=== PATIENT | female | born 1960 | race Caucasian/White ===

== ENCOUNTER 2016-07-12 07:06 | Emergency (ER) | payer BC ==
[~2016-07-12] VITALS: Ht 167.6 cm; Wt 113.9 kg
[2016-07-12 07:46] LABS: HEMATOCRIT 43.3 % (36.0-46.0); MCH 31.1 PG (29.0-34.0); MCHC 34.4 G/DL (30.0-36.0); MCV 90.4 FL (83-99); MEAN PLAT.VOLUME 8.9 uM^3 (9.5-12.4); PLATELET COUNT 298 K/uL (156-360); RBC DIS.WIDTH-CV 12.9 % (11.8-14.6); RBC DIS.WIDTH-SD 42.2 % (39-53); RED BLOOD COUNT 4.79 M/uL (3.80-5.20); WHITE BLOOD COUNT 4.3 K/uL (4.1-10.2)
[2016-07-12 08:22] LABS: ANION GAP 10 MEQ/L (2-14); CHLORIDE 104 MEQ/L (99-109); POTASSIUM 4.2 MEQ/L (3.7-5.4); SAMPLE HEMOLYSIS CHECK 0; SAMPLE ICTERIC CHECK 0; SAMPLE LIPEMIA CHECK 0; SODIUM 139 MEQ/L (136-147)
[2016-07-12] MEDS ORDERED: ESCITALOPRAM OX20 MG PO (08:23)
[2016-07-12] MEDS ORDERED: FLUOXETINE HCL40 MG PO (08:24)
[2016-07-12] MEDS ORDERED: ARIPIPRAZOLE5 MG PO (08:24)
[2016-07-12] MEDS ORDERED: SIMVASTATIN20 MG PO (08:24)
[2016-07-12] MEDS ORDERED: LOSARTAN-HCTZ1 EAC2 PO (08:24)
[2016-07-12] MEDS ORDERED: METOPROLOL SUCC50 MG PO (08:24)
[2016-07-12 08:27] LABS: GLUCOSE 99 mg/dL (70-99); UREA NITROGEN (BUN) 12 mg/dL (9-23)
[2016-07-12 08:33] LABS: GFR ESTIMATE (CALCULATED) > 59 mL/min/
[2016-07-12 08:45] LABS: TROP-I INTERPRETATION NEGATIVE; TROPONIN-I 0.02 ng/mL (0.0-0.30)
[2016-07-12 10:02] LABS: TROP-I INTERPRETATION NEGATIVE; TROPONIN-I 0.03 ng/mL (0.0-0.30)
[2016-07-12] MEDS ORDERED: VALTREX1000 MG PO (10:08)
[2016-07-12] MEDS ORDERED: PERCOCET 5/31 TABLET PO (10:08)
[2016-07-12 10:50] VITALS: BP 128/72
== END 2016-07-12 10:52 | disposition home or self-care (01) ==
LOC: EME 07:06
PROVIDERS: Emergency Medicine
DX: R07.89 Other chest pain (principal); B02.9 Zoster without complications; R05 Cough; I10 Essential (primary) hypertension
CPT/HCPCS: 71020; 80048; 84484; 85027; 93005

== ENCOUNTER 2016-07-24 12:27 | Emergency (ER) | payer BC ==
[~2016-07-24] VITALS: Ht 167.6 cm; Wt 115.5 kg
[~2016-07-24 12:27] MED LIST: ARIPIPRAZOLE5 MG PO; ESCITALOPRAM OX20 MG PO; FLUOXETINE HCL40 MG PO; LOSARTAN-HCTZ1 EAC2 PO; METOPROLOL SUCC50 MG PO; PERCOCET 5/31 TABLET PO; SIMVASTATIN20 MG PO; VALTREX1000 MG PO
[2016-07-24 15:21] LABS: HEMATOCRIT 43.6 % (36.0-46.0); MCH 31.6 PG (29.0-34.0); MCHC 33.7 G/DL (30.0-36.0); MCV 93.8 FL (83-99); MEAN PLAT.VOLUME 8.8 uM^3 (9.5-12.4); PLATELET COUNT 344 K/uL (156-360); RBC DIS.WIDTH-CV 13.5 % (11.8-14.6); RBC DIS.WIDTH-SD 43.7 % (39-53); RED BLOOD COUNT 4.65 M/uL (3.80-5.20)
[2016-07-24 15:22] LABS: WHITE BLOOD COUNT 6.5 K/uL (4.1-10.2)
[2016-07-24 15:28] LABS: CHLORIDE 101 mEq/L (99-109); SODIUM 137 mEq/L (136-147)
[2016-07-24 15:29] LABS: GLUCOSE 115 mg/dL (70-99)
[2016-07-24 15:31] LABS: ANION GAP 11 MEQ/L (2-14)
[2016-07-24 15:33] LABS: GFR ESTIMATE (CALCULATED) > 59 mL/min/
[2016-07-24 15:34] LABS: UREA NITROGEN (BUN) 19 mg/dL (9-23)
[2016-07-24 15:36] LABS: TROP-I INTERPRETATION NEGATIVE; TROPONIN-I < 0.01 ng/mL (0.0-0.30)
[2016-07-24 19:40] LABS: ADD MIUA? YES; BILIRUBIN NEGATIVE; BLOOD NEGATIVE; COLOR YELLOW ((YELLOW)); GLUCOSE (STRIP) NEGATIVE; KETONES NEGATIVE; LEUKOCYTES LARGE; NITRITE NEGATIVE; PH, URINE 5.5 (5-8); PROTEIN (STRIP) NEGATIVE; UROBILINOGEN 0.2 MG/DL (0.2-1.0)
[2016-07-24 20:12] LABS: BACTERIA 1+ /HPF; CASTS NONE SEEN /LPF; CRYSTALS NONE SEEN; EPITHELIAL CELLS 1+ /HPF; MUCUS TRACE /LPF; RED BLOOD CELLS RARE /HPF (0-5); UCUL ADDED? NO; WHITE BLOOD CELLS 20-30 /HPF (0-5)
[2016-07-24 21:43] VITALS: BP 168/82
== END 2016-07-24 21:43 | disposition home or self-care (01) ==
LOC: EME 12:27
PROVIDERS: Physician Assistant
DX: R53.1 Weakness (principal); M79.672 Pain in left foot; Z88.1 Allergy status to other antibiotic agents
CPT/HCPCS: 70450; 71020; 73630; 80048; 81003; 84484; 85027; 87086; 93005; 99281; 99283

== ENCOUNTER → 2016-09-27 | Outpatient (CLI) | payer BC ==
[2016-09-27 17:21] LABS: APPEARANCE PINK; RED CELL COUNT 678 /MM^3 (0-1); RED CELL DILUTION 1; WBC AREA COUNTED 18; WBC DILUTION 1; WHITE CELL COUNT 24 /MM^3 (0-5); WHITE CELL RAW COUNT 43
[2016-09-27 17:24] LABS: CSF EOSINOPHILS 3 % (0-25); MONO RAW COUNT 50; MONONUCLEAR WBC'S 50 % (50-90); POLY RAW COUNT 47; POLYNUCLEAR WBC'S 47 % (0-3)
[2016-09-27 17:37] LABS: APPEARANCE (RECHECK) CLEAR/COLORLESS; CSF TUBE NUMBER (RECHECK) TUBE #1; RED CELL AREA COUNTED 18; RED CELL COUNT (RECHECK) 9 /MM^3 (0-1); RED CELL DILUTION 1
[2016-09-28 23:05] LABS: Albumin, Serum 4.1 g/dL (3.5-4.9); IgG Index, CSF 0.51 index (<0.66); Synthesis Rate IgG, CSF -2.2 mg/24 h (-9.9-3.3)
== END | disposition home or self-care (01) ==
LOC: RAD 14:50
PROVIDERS: Psychiatry & Neurology Clinical Neurophysiology
PROC: 009U3ZZ Drainage of Spinal Canal, Percutaneous Approach (ICD-10-PCS; principal; 2016-09-27)
DX: B99.9 Unspecified infectious disease (principal)
CPT/HCPCS: 62270; 77003; 82945; 83873 90; 83916 90; 84157; 86617 90; 86618 90; 87070; 87205; 89051

== ENCOUNTER 2017-08-10 15:03 | Emergency (ER) | payer BC ==
[~2017-08-10] VITALS: Ht 167.6 cm; Wt 113.2 kg
[2017-08-10 16:32] LABS: HEMATOCRIT 44.5 % (36.0-46.0); HEMOGLOBIN 15.5 G/DL (11.9-15.5); MCH 31.8 PG (29.0-34.0); MCHC 34.8 G/DL (30.0-36.0); MCV 91.4 FL (83-99); PLATELET COUNT 405 K/uL (156-360); RBC DIS.WIDTH-CV 12.8 % (11.8-14.6); RBC DIS.WIDTH-SD 42.6 % (39-53); RED BLOOD COUNT 4.87 M/uL (3.80-5.20); WHITE BLOOD COUNT 11.7 K/uL (4.1-10.2)
[2017-08-10 16:40] LABS: CHLORIDE 98 mEq/L (99-109); POTASSIUM 3.8 mEq/L (3.7-5.4); SODIUM 134 mEq/L (136-147)
[2017-08-10 16:42] LABS: GLUCOSE 114 mg/dL (70-99)
[2017-08-10 16:46] LABS: CREATININE 0.9 mg/dL (0.6-1.3); GFR ESTIMATE (CALCULATED) > 59 mL/min/
[2017-08-10 16:47] LABS: UREA NITROGEN (BUN) 24 mg/dL (9-23)
[2017-08-10 16:54] LABS: TROP-I INTERPRETATION NEGATIVE; TROPONIN-I < 0.01 ng/mL (0.0-0.30)
[2017-08-10] MEDS ORDERED: PHENERGAN-CODE120 ML PO (17:09)
[2017-08-10 17:27] VITALS: BP 115/78
== END 2017-08-10 17:28 | disposition home or self-care (01) ==
LOC: EME 15:03
PROVIDERS: Nurse Practitioner Family
DX: B34.9 Viral infection, unspecified (principal); R05 Cough; F32.9 Major depressive disorder, single episode, unspecified; I10 Essential (primary) hypertension; G43.909 Migraine, unspecified, not intractable, without status migrainosus; G35 Multiple sclerosis; Z88.0 Allergy status to penicillin
CPT/HCPCS: 71046; 80048; 84484; 85027; 87502; 93005; 99281; 99284; J1100